=== PATIENT | male | born 1995 | race Caucasian/White ===

== ENCOUNTER 2023-12-16 18:55 | Emergency (ER) | payer OTHER ==
[~2023-12-16] VITALS: Ht 190.5 cm; Wt 113.0 kg
[2023-12-16 19:38] VITALS: O2SAT 100
[2023-12-16] MEDS: ONDANSETRON HCL 4MG/2ML INJ IM ONE (22:19)
[2023-12-17 01:12] VITALS: BP 134/77; PULSE 98; RESP 20; TEMP 98.2
== END 2023-12-17 01:04 | disposition home or self-care (01) ==
LOC: ER 18:55
DX: U07.1 COVID-19 (principal); B34.9 Viral infection, unspecified
CPT/HCPCS: 99284; 71045; 87426; 87430; 87070; 87804 ×2; 96372; J2405